=== PATIENT | male | born 1965 | race Caucasian/White ===

== ENCOUNTER → 2020-04-25 08:57 | Outpatient (CLI) | payer BC, OTHER, SELFPAY ==
[2020-04-25 10:09] LABS: Alanine Aminotransferase 50 IU/L (<50); Albumin 4.3 g/dL (3.5-5.0); Albumin Globulin Ratio 1.5 (1.0-2.8); Alkaline Phosphatase 58 U/L (38-126); Aspartate Aminotransferase 32 IU/L (17-59); Bilirubin Total 1.2 mg/dL (0.2-1.3); Bilirubin Unconjugated 1.2 mg/dL (0.0-1.1); Globulin 2.8 g/dL (1.7-4.1); HEMOLYSIS < 15 (0-50); Total Protein 7.1 g/dL (6.3-8.2)
== END ==
PROVIDERS: PCP Family Medicine; Referring Provider Dermatology; Visit Provider Dermatology
DX: B35.1 Tinea unguium (principal); Z79.899 Other long term (current) drug therapy
CPT/HCPCS: 36415; 80076

== ENCOUNTER → 2020-05-10 07:49 | Outpatient (CLI) | payer BC, OTHER, SELFPAY ==
[2020-05-10 09:46] LABS: Alanine Aminotransferase 42 IU/L (<50); Albumin 4.3 g/dL (3.5-5.0); Albumin Globulin Ratio 1.7 (1.0-2.8); Alkaline Phosphatase 54 U/L (38-126); Aspartate Aminotransferase 29 IU/L (17-59); Bilirubin Total 1.4 mg/dL (0.2-1.3); Bilirubin Unconjugated 1.4 mg/dL (0.0-1.1); Globulin 2.6 g/dL (1.7-4.1); HEMOLYSIS < 15 (0-50); Total Protein 6.9 g/dL (6.3-8.2)
== END ==
PROVIDERS: PCP Family Medicine; Referring Provider Dermatology; Visit Provider Dermatology
DX: Z79.899 Other long term (current) drug therapy (principal)
CPT/HCPCS: 36415; 80076

== ENCOUNTER → 2024-04-07 10:07 | Outpatient (CLI) | payer BC, OTHER, SELFPAY ==
--- NOTE | 2024-04-07 10:54 | EKG_ITS ---
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
[2024-04-07 11:22] LABS: Add Manual Diff / Slide Review NO; Basophils Absolute Auto 0 /uL (0-100); Basophils Percent Auto 0.5 % (0-2); Eosinophils Absolute Auto 100 /uL (0-450); Eosinophils Percent Auto 3.1 % (2-4); Hematocrit 43.6 % (41-53); Hemoglobin 15.1 g/dL (13.5-17.5); Lymphocytes Absolute Auto 1400 /uL (1100-4500); Mean Corpuscular HGB Conc 34.7 % (30-36); Mean Corpuscular Volume 86.6 fL (80-100); Monocytes Absolute Auto 400 /uL (0-900); Monocytes Percent Auto 9.6 % (3-14); Neutrophils Absolute Auto 1900 /uL (1500-7000); Neutrophils Percent Auto 50.8 % (50-75); Platelet Count 198 X10^3/uL (150-400); Red Blood Cell Count 5.03 X10^6/uL (4.5-5.9); Red Cell Distribution Width 13.6 % (11.6-14.8); White Blood Cell Count 3.8 X10^3/uL (4.5-11.0)
[2024-04-07 11:51] LABS: BUN Creatinine Ratio 35.4 (6-22); Blood Urea Nitrogen 29 mg/dL (9-20); Carbon Dioxide 23 mmol/L (22-32); Chloride 104 mmol/L (98-107); Estimated Glomerular Filt Rate > 60 mL/min (>60); Glucose 113 mg/dL (70-100); HEMOLYSIS < 15 (0-50); Sodium 136 mmol/L (137-145)
[2024-04-07 11:52] LABS: Appearance Urine UA CLEAR; Bilirubin Urine UA NEGATIVE (NEGATIVE); Color Urine UA YELLOW; Glucose Urine UA NEGATIVE (Negative); Ketones Urine UA TRACE (NEGATIVE); Leukocyte Esterase Urine UA NEGATIVE (NEGATIVE); Nitrite Urine UA NEGATIVE (Negative); Occult Blood Urine UA TRACE-INTACT (Negative); Protein Urine UA NEGATIVE (Negative); Urobilinogen Urine UA 0.2 E.U./dL (0.2)
[2024-04-07 11:54] LABS: Urine Volume 10mL (spun)
[2024-04-07 11:56] LABS: Bacteria Urine None Seen; Culture Indicated Urine Cult Not Indicated; Mucus Urine 2+ (Negative); RBC Urine None Seen (0-5/HPF); Squamous Epithelial Cell Urine 0-1 /HPF (0-5/HPF); WBC Urine None Seen (0-5/HPF)
== END ==
PROVIDERS: PCP Family Medicine; Referring Provider Orthopaedic Surgery; Visit Provider Orthopaedic Surgery
DX: Z01.818 Encounter for other preprocedural examination (principal); R73.9 Hyperglycemia, unspecified; Z01.812 Encounter for preprocedural laboratory examination; N39.0 Urinary tract infection, site not specified
CPT/HCPCS: 36415; 80048; 81001; 83036; 85025; 93005

== ENCOUNTER 2024-05-15 06:07 | Day surgery (SDC) | payer BC, OTHER, SELFPAY ==
[2024-05-02 12:53] VITALS: BMI 38.7
[2024-05-15] VITALS (19 sets, daily range): BP systolic 92–147; BP diastolic 51–86; PULSE 64–86; RESP 15–20; TEMP 36.4–37.1; O2SAT 92–98; BMI 37.9
--- NOTE | 2024-05-15 | DI.RAD.S_ITS ---
PROCEDURE: XR PELVIS 1-2V INDICATIONS: INTRA OP TOTAL RIGHT HIP TECHNIQUE: 1 view of the lower pelvis acquired. COMPARISON: None. FINDINGS: Bones: Patient is status post right hip arthroplasty, with hardware components in expected positions. The hip joint appears congruent. The visualized bony structures appear intact. Soft tissues: Overlying postoperative changes are noted. No suspicious soft tissue densities. IMPRESSION: Intraoperative image of pelvis shows right total hip arthroplasty in progress. Normal right hip alignment. Dictated by: Jose Schmitt M.D. on 05/15/2024 at 11:13 Approved by: Jose Schmitt M.D. on 05/15/2024 at 11:14
--- NOTE | 2024-05-15 06:00 | DI.RAD.S_ITS ---
PROCEDURE: XR HIP W PEL IF DONE RT 2V INDICATIONS: myriam TECHNIQUE: AP pelvis and lateral view of the hip acquired. COMPARISON: [facility], [place], XR PELVIS 1-2V, 05/15/2024, 9:13. FINDINGS: Bones: Patient is status post total right hip arthroplasty, with hardware components in expected positions. The hip joint appears congruent. The visualized bony structures appear intact. Soft tissues: Overlying postoperative changes are noted. No suspicious soft tissue densities. IMPRESSION: Expected immediate postoperative appearance, status post total right hip arthroplasty. Dictated by: Sae Edwards M.D. on 05/15/2024 at 15:10 Approved by: Sae Edwards M.D. on 05/15/2024 at 15:11
[2024-05-15] MEDS: ACETAMINOPHEN 325 MG TABLET 975 MG PO ×3 (06:54→20:41)
[2024-05-15] MEDS: CELECOXIB 200 MG CAPSULE PO (06:57)
[2024-05-15] MEDS: LACTATED RINGERS 1,000 ML 42 ML IV ×2 (06:58→09:15)
[2024-05-15 07:25] LABS: Influenza A - CEPHEID Flu A NEGATIVE (NEGATIVE); Influenza B - CEPHEID Flu B NEGATIVE (NEGATIVE); Respiratory Syncytial Virus Negative (Negative)
[2024-05-15 07:26] LABS: COVID-19 CEPHEID 4-PLEX PCR Negative (Negative)
[2024-05-15] MEDS: VANCOMYCIN 1,000 MG in SODIUM CHLORIDE 0.9% 250 ML 250 MG IV (07:40)
--- NOTE | 2024-05-15 07:43 | PM.PREOP ---
Pre-operative Note Interval Note History & Physical reviewed/Exam performed by Physician: Yes Changes to H&P: No
--- NOTE | 2024-05-15 07:44 | PM.OP.1 ---
Operative Date/Time/Diagnoses Date of procedure: 05/15/24 Time of procedure: 08:00 Pre-op diagnosis: right hip OA Post-op diagnosis: same Procedure & Clinicians Procedure: Right total hip arthroplasty posterior approach Same procedure as scheduled: Yes Indications: The patient has had progressively worsening right hip pain with radiographic changes consistent with arthritis. Non-operative management has failed and the patient has requested total hip replacement. The risks, benefits and alternatives to surgery were discussed with the patient prior to proceeding. Risks discussed included, but were not limited to, failure to relieve pain, leg length discrepancy, dislocation, stiffness, infection, nerve damage, deep venous thrombosis, pulmonary embolism, stroke, coma, heart attack, permanent paralysis and , as well as the potential need for eventual revision of the prosthetic. Surgeon: Gertrudis Acuña [employer]: [employer] Anesthesia Type: General and Spinal Operative Notes Findings: Severe right hip OA, adequate stability, hard bone Closure Type: primary Specimen(s): none sent Prosthetic devices, grafts, tissues, transplants, or devices: Acuña and Nephew R3 size 56, two 6.5 mm screw, polar stem extended offset size 3 lateralized, 36+ 0 femoral head Oxinium Estimated Blood Loss (mL): 250 Blood products transfused: none Procedure in detail: The patient was seen in the pre-operative area, where the patient identified the right hip as the operative site and this was marked with my initials. The patient received pre-operative antibiotics and was taken to the operating room and placed on the operative table in the left lateral decubitus position after satisfactory anesthesia. A realtime court reporter out was performed. The right leg was prepared from the ankle to the iliac crest with ChloroPrep in the usual fashion and draped through sterile drapes. A PA was used during the procedure and was essential for intraoperative retraction and safe implantation of the components. The hip was approached through an approximately 20 cm incision centered over the greater trochanter and curving gently posteriorly as it went proximally. This was carried sharply to the fascia margo, which was divided and retracted with a self retaining retractor. The trochanteric bursa was excised with care being taken to avoid the sciatic nerve, which was identified and protected throughout the case. The short external rotators were incised and the capsulomuscular flap was raised and tagged for later repair. The hip was dislocated, and a femoral neck osteotomy performed approximately 15 mm above the lesser trochanter. Retractors were placed around the femur. The canal was opened with a box cutting osteotome, followed by a T handled reamer and a lateralizing reamer. The chili pepper broach was then used, followed by sequential broaching until there was good stability of the broach in the femur. Retractors were placed to expose the acetabulum. The labrum and central soft tissues were removed. Reaming was performed initially going up in 2 mm increments, then 1 mm increments until good bite was obtained with an odd sized reamer. The cup 1 mm larger than the last reamer was then inserted using the appropriate anteversion guides. It was further stabilized with two screws. A trial neutral liner was placed. The broach was placed in the canal. A trial head and neck were then placed and the hip relocated and checked for leg length and stability. An intraoperative film confirmed the component position and no evidence of fracture. The patient was stable in the position of sleep, of squatting, and could be put through a range of motion with 45 degrees internal rotation without dislocation. At 90 degrees flexion, internal rotation to 70 ? was possible before dislocation. This was felt to be satisfactory and the appropriate components were opened, and the trials were removed. The acetabular liner was impacted into position. The final stem was then impacted into the prepared femoral canal. A brief Betadine soak was performed while trialing with head options. The hip was meticulously irrigated with normal saline. Finally the femoral head was impacted onto the stem. The acetabulum was cleared of all material and the hip relocated one final time. The capsulomuscular flap was then repaired to the greater trochanter though an awl hole using the tag sutures. The short external rotators were repaired with a nonabsorbable suture. The fascia margo was closed with Vicryl. The subcutaneous layer was closed with barbed sutures and syeda. A david Dressing was applied and the patient was taken to recovery having tolerated the procedure well. Complications: none Post-operative Condition: stable Disposition: Acute Care Plan for aftercare: The patient will be maintained on a standard total hip replacement protocol with weight bearing as tolerated and posterior hip precautions. The patient will receive Aspirin and sequential compression devices for DVT prophylaxis. The patient will be discharged home when safe for the home environment.
[2024-05-15] MEDS: CEFAZOLIN VIAL 3 GM in SODIUM CHLORIDE 0.9% 100 ML IV ×3 (07:46→23:47)
--- NOTE | 2024-05-15 07:53 | SUR.OPER ---
Lateral on padded OR bed. Gel axillary roll. Arms secured on padded armboard with pillow supporting top arm. Padded hip positioner braces x4 - anterior and posterior chest and pelvis. Additional gel pad used anterior pelvis. Gel pad under bottom leg from knee to foot and secured with tape over sheet.
[2024-05-15] MEDS: BUPIVACAINE 0.25% W/ EPI 30 ML VIAL 60 ML INJ (08:58)
[2024-05-15] MEDS: BUPIVACAINE LIPOSOME 266 MG/20 ML VIAL INJ (08:59)
[2024-05-15] MEDS: TRANEXAMIC ACID 1,000 MG VIAL 2000 MG INJ ×2 (09:00→10:20)
[2024-05-15] MEDS: EPINEPHrine 1 MG/ML IRR (09:02)
--- NOTE | 2024-05-15 11:34 | SUR.PHASEI ---
CLAUDIO dressing checked and the seal light blinking. CORINNA Chiu to bedside and aware who wants this RN to add another tegaderm dressing. dressings added and seal light is currently green. patient tolerated well.
[2024-05-15] MEDS: LACTATED RINGERS 1,000 ML 100 ML IV (12:50)
[2024-05-15] MEDS: OXYCODONE IR 5 MG TABLET PO ×4 (12:50→23:51)
--- NOTE | 2024-05-15 13:10 | OT.IP.EVAL ---
Current Diagnoses Unilateral primary osteoarthritis, right hip (05/15/24) Surgery Performed Operation Date: 05/15/24 07:45 Actual Procedures p Total Hip Arthroplasty(Right) - Gertrudis Acuña MD Past Medical History (Last Updated 05/02/24 @ 14:05 by Amy Muniz, RN) HLD (hyperlipidemia) Osteoarthritis Surgical History (Last Updated 05/02/24 @ 14:05 by Amy Muniz, RN) History of total left knee replacement History of total right knee replacement Occupational Therapy Inpatient Evaluation/Re-Eval M1 PT/OT-IP Prior Functional Status Start: 05/15/24 13:26 Freq: NEEDED Status: Active Protocol: Document 05/15/24 13:27 [facility] (Rec: 05/15/24 13:37 [facility] [id number]) Medical Review Prior Functional Status Communication I Mobility and Gait Pt states did not use a device but was limited in distance for walking. Activities of Daily Living and IADL's COmpletely independent with all needs but had pain. Prior Functional Level (Other details) Pt's to be there for the next two days and then has to work. Their legally blind son to be able to stay and assist him. Social History Household Members spouse Living Arrangements House Number of Floors (Floors) One Floor Home Environment High Toilet,Walk in Shower, Ramp Home Equipment Front Wheel Walker,Straight Cane,Raised Toilet Seat w/ Armrests,Hand Held Shower,Lift Recliner M2 OT-IP Current Condition Start: 05/15/24 13:26 Freq: Status: Active Protocol: Document 05/15/24 13:27 [facility] (Rec: 05/15/24 13:37 [facility] [id number]) Occupational Therapy Current Condition Current Condition Evaluation Date 05/15/24 Treatment Diagnosis S/P R ROSA posterior approach Post Operative Precautions Posterior Hip Precautions No Hip Flexion > 90 degrees,No Hip Internal Rotation,No Hip Adduction M3 OT- IP Subjective and Pain Start: 05/15/24 13:26 Freq: Status: Active Protocol: Document 05/15/24 13:27 [facility] (Rec: 05/15/24 13:37 [facility] [id number]) OT- Subjective Occupational Therapy Visit Type Type Initial Evaluation Visit Start Time 13:10 Visit Stop Time 13:30 Occupational Therapy Visit Comments Patient Comments Pt very groggy and not ready to get up yet but agreed to talk to OT. Pt states did pre PT but does not have his outpt PT appt set-up yet. Patient/Caregiver Goals TO go home. OT Pain Assessment Pain When Pain Assessed At Rest Pain Present Pain Present Denied Pain M4 OT- IP ADL's Start: 05/15/24 13:26 Freq: Status: Active Protocol: Document 05/15/24 13:27 [facility] (Rec: 05/15/24 13:37 [facility] [id number]) OT TCD-Kjkc-Eglqvhn General Evaluation Self-Feeding Ability Independent OT ADL-Grooming Comments OT Grooming Comments Pt able to wash his hands after set-up. OT ADL-Oral Care Comments Oral Care Comments Not performed. OT ADL-Dressing General Eval Lower Body Dressing Ability Maximum Assistance Comments OT Dressing Comments Educated of getting his RLE dressed first and take out last. Pt states has slip on shoes. Pt would benefit form hip kit for ADL needs. OT ADL-Toileting Comments OT Toileting Comments Suggested best to get up to use the bathroom, but have the urinal just in case. Pt states to sleep in his lift chair initially. OT ADL-Bathing Comments OT Bathing Comments Pt will benefit from a shower chair. Spoke on care for dressing during showering needs. M5 OT- IP IADL's Start: 05/15/24 13:26 Freq: Status: Active Protocol: Document 05/15/24 13:27 [facility] (Rec: 05/15/24 13:37 [facility] [id number]) OT-Instrumental Activities of Daily Living Home Safety Awareness Awareness of Need for Assistance at Home Good Awareness Home Safety Comments Pt is still a bit groggy from sx. Meal Preparation Meal Preparation Caregiver Provides Assist Solid Glass Rod Dowel Machine Operator Solid Glass Rod Dowel Machine Operator Caregiver Provides Assist M6 OT- IP Functional Cognition Start: 05/15/24 13:26 Freq: Status: Active Protocol: Document 05/15/24 13:27 [facility] (Rec: 05/15/24 13:37 [facility] [id number]) Cognitive Factors Limiting Selfcare Function Cognitive Ability Level of Alertness Alert,Drowsy Patient Orientation Name,Place,Situation Attention Span Ability Capable of Focused Attention, Capable of Sustained Attention Ability to Follow Commands Able to Follow One Step Commands Cognitive Comments Cognitive Assessment Comments Pt is still a bit groggy from sx. Pt able to recall 1/3 hip precautions and able to go over precautions with pt and go over the hip folder with him. Encouraged pt to work on leg exercises in bed. OT- Vision and Hearing OT- Hearing Assessment OT- Hearing Assessment WFL OT- Vision Assessment Visual Acuity Glasses All The Time Vision Assessment Comments Pt complaining of having something in his right eye and feeling scratchy, nursing aware. M7 OT- IP Mobility and Balance Start: 05/15/24 13:26 Freq: Status: Active Protocol: Document 05/15/24 13:27 [facility] (Rec: 05/15/24 13:37 [facility] [id number]) OT-Transfer Assessment Comments Mobility Comments Not performed as pt not ready to get up and getting his lunch. M8 OT- IP Objective Assessments Start: 05/15/24 13:26 Freq: Status: Active Protocol: Document 05/15/24 13:27 [facility] (Rec: 05/15/24 13:37 [facility] [id number]) OT Gross Range of Motion Upper Extremity Range of Motion Assessment Within Functional Limits OT Strength Upper Extremity Strength Assessment Within Functional Limits M9 OT- IP Assessment and Plan Start: 05/15/24 13:26 Freq: Status: Active Protocol: Document 05/15/24 13:27 [facility] (Rec: 05/15/24 13:37 [facility] [id number]) OT Summary Assessment and Plan Potential Rehabilitation Potential Good Analytic Complexity at Evaluation Low Summary OT Impairments Pain,Balance,Functional Mobility,Grooming,Dressing, Toileting,Bathing,Toilet Transfers,Shower Transfers, Activity Tolerance Progress Towards Goals Slow Progress due to Medical Issues Assessment Summary Pt still groggy and a but numb yet and not reeady to get up for OT eval. Able to go over OT needs and safety suggestions for ADL needs. Pending how pt mobilizes, pt to hopefully go home with 24/7 assist and outpt PT. Goals Self-Feeding Goal Independent Grooming Goal Independent Dressing Goal Minimal Assistance Toileting Goal Independent Bathing Goal Minimal Assistance Toilet Transfer Goal Independent Shower Transfer Goal Contact Guard Assistance Days to Meet Goals 10 Frequency of Treatment Other frequency 5x/week Treatment Plan OT Treatment Plan ADL Training,Functional Mobility,Patient/Family Education,Discharge Planning Discharge Recommendations OT Discharge Recommendations Home with 24/7 Assist Available,Outpatient PT Other Discharge Recommendations Not able to mobilize on OT eval, therefore goals and disposition may change. Home Equipment Needs Shower chair, LB dressing equipment Transportation Needs at Discharge Private Vehicle
[2024-05-15] MEDS: GENTAMICIN 0.3% OPHTH 5 ML 1 DROPS EYE-BOTH ×2 (15:10→19:00)
--- NOTE | 2024-05-15 15:10 | PT.IIE ---
Current Diagnoses Unilateral primary osteoarthritis, right hip (05/15/24) Surgery Performed Operation Date: 05/15/24 07:45 Actual Procedures p Total Hip Arthroplasty(Right) - Gertrudis Acuña MD Surgical History (Last Updated 05/02/24 @ 14:05 by Amy Muniz, RN) History of total left knee replacement History of total right knee replacement Medical History (Last Updated 05/02/24 @ 14:05 by Amy Muniz, GENE) HLD (hyperlipidemia) Osteoarthritis Physical Therapy Inpatient Evaluation/Re-Eval M1 PT/OT-IP Prior Functional Status Start: 05/15/24 16:39 Freq: NEEDED Status: Active Protocol: Document 05/15/24 15:10 AB (Rec: 05/15/24 16:53 AB [id number]) Medical Review Prior Functional Status Medical History Reviewed Yes Communication able to make needs known Mobility and Gait pt stated that he was indpeendent with all mobilities and ambulation without AD Activities of Daily Living and IADL's per OT note: Completely independent with all needs but had pain. Social History Household Members spouse,children Living Arrangements House Number of Floors (Floors) One Floor Number of Stairs To Enter/Railing? ramp to enter Home Environment High Toilet,Walk in Shower, Ramp Home Equipment Front Wheel Walker,Straight Cane,Raised Toilet Seat w/ Armrests,Hand Held Shower,Lift Recliner Additional Social History Comment pt's spouse will assist pt for 1-2 days; has a 30y/o legally blind son who may be able to assist pt pt plans to sleep on his lift chair initially M2 PT-IP Current Condition Start: 05/15/24 16:39 Freq: NEEDED Status: Active Protocol: Document 05/15/24 15:10 AB (Rec: 05/15/24 16:53 AB [id number]) Physical Therapy Current Condition Current Condition Evaluation Date 05/15/24 Treatment Diagnosis s/p R ROSA posterior; difficulty in walking Onset Date 05/15/24 M3 PT-IP Subjective Start: 05/15/24 16:39 Freq: NEEDED Status: Active Protocol: Document 05/15/24 15:10 AB (Rec: 05/15/24 16:53 AB [id number]) Subjective Physical Therapy Visit Type Type Initial Evaluation Visit Start Time 15:10 Visit Stop Time 15:55 Number of CASINO BANKER Visits 0 Physical Therapy Visit Comments Patient Comments agreeable to do PT Therapy Pain Assessment Pain When Pain Assessed At Rest Pain Present Pain Present Pain Reported Location Right Hip Intensity 4 Scale Used Numeric (0 - 10) Pain Management Techniques Apply Cold,Distraction, Modification of Treatment,Re- positioning,Timing of Activity with Medications M4 PT-IP Mobility and Gait Start: 05/15/24 16:39 Freq: NEEDED Status: Active Protocol: Document 05/15/24 15:10 AB (Rec: 05/15/24 16:53 AB [id number]) PT-Bed Mobility Assessment Supine to Sit Supine to Sit Maximum Assistance,1 Person Assistance Sit to Supine Sit to Supine Maximum Assistance,1 Person Assistance PT-Transfer Assessment Sit to and From Stand Sit to and from Stand Maximum Assistance,1 Person Assistance,Use of Upper Extremities Equipment Transfer Assistive Device Gait Belt,Front Wheeled Walker Orthotic/Prosthetic Devices or Brace: No Comments Mobility Comments pt in bed and spouse in room. pt agreed to do PT. stated that he can move RLE but still has slight numbness on anterior thigh. obtained PLOF and home set up. educated pt on R posterior hip precautions. pt able to recall. BP in supine: 132/83. pt completed supine to sit max A and max cues for techniques. pt able to sit on EOB CGA. c/o dizziness/lightheadedness/ nausea. BP checked: 126/69. pt rested and sat for 1-2 minutes. BP rechecked: 134/80. sit to stand max A and max cues. pt able to take 2 steps forward/backwards and sidestepping towards HOB using FWW max A and max cues. cued and assisted with R quads activation. completed sit to supine max A and max cues with LE elevation to bed. positioned pt in bed. BP checked: 126/74. call light and table placed within reach. setup caregiver training tomorrow with pt and sposue at 9am. Gait Assessment Gait Gait Assistance Required: Maximum Assistance,1 Person Assist Distance (Feet) 3 Able to Maintain Weight Bearing Status Yes During Gait Assistive Devices Assistive Device Gait Belt,Front Wheeled Walker Orthotic/Prosthetic Devices or Brace: No Gait Deviations General Gait Pattern Decreased Stride Length, Decreased Feet Clearance,Step- to Gait Factors Limiting Gait Function Factors Limiting Gait Function Decreased Activity Tolerance, Decreased Sensation,Decreased Strength,Difficulty Following Directions,Limited Range of Motion,Pain,Poor Balance,Poor Safety Awareness PT-Balance Assessment Sitting Balance and Reactions Static Sitting Balance Ability Normal Dynamic Sitting Balance Ability Good Standing Balance and Reactions Static Standing Balance Ability Fair Dynamic Standing Balance Ability Poor Device Used FWW M5 PT-IP Objective Assessments Start: 05/15/24 16:39 Freq: NEEDED Status: Active Protocol: Document 05/15/24 15:10 AB (Rec: 05/15/24 16:53 AB [id number]) Orientation Orientation/Cognition Level of Alertness Alert Orientation Name,Place,Situation Language Function Ability No Deficits Noted Safety Awareness Decreased Safety Awareness Memory Description No Deficits Noted Gross Range of Motion Lower Extremity ROM Assessment Within Functional Limits Strength Lower Extremity Strength Assessment Right Impaired Hip 3-/5 Knee 3+/5 Coordination Assessment Gross Coordination Gross Coordination WNL Sensation Assessment Sensation Sensation Description Numbness Comments Sensation Comments slight R anterior thigh numbness Muscle Tone Muscle Tone WNL Yes M6 PT-IP Treatment Start: 05/15/24 16:39 Freq: NEEDED Status: Active Protocol: Document 05/15/24 15:10 AB (Rec: 05/15/24 16:53 AB [id number]) Physical Therapy Treatment Exercises Exercises Heel Slides Education Education Provided Precautions,Weight Bearing Status,Safety M7 PT-IP Assessment and Plan Start: 05/15/24 16:39 Freq: NEEDED Status: Active Protocol: Document 05/15/24 15:10 AB (Rec: 05/15/24 16:53 AB [id number]) PT Summary Assessment and Plan Potential Rehabilitation Potential Fair Status of Condition at Evaluation Evolving Summary Impairments Pain,ROM,Strength,Balance, Coordination,Sensation,Bed Mobility,Transfers,Gait, Activity Tolerance Assessment Summary pt is a 58 y/o M s/p R ROSA posterior approach POD 0. pt has R posterior hip precautions and is WBAT. pt requiring max A with bed mobility, transfers and ambulation using fWW at this time. caregiver training set up for tomorrow with spouse at 9 am. will continue to assess progress. Goals Bed Mobility Goal Standby Assistance Transfer Goal Standby Assistance,Front Wheeled Walker Gait Goal Standby Assistance,Front Wheel Walker Gait Distance 150 Other Goals improve bed mobility, transfers, ambulation using FWW ~ 250 ft mod I Days to Meet Goals 5 Frequency of Treatment Frequency Of Treatment Twice a Day Treatment Plan Physical Therapy Treatment Plan Bed Mobility Training,Transfer Training,Gait Training, Therapeutic Exercise,Balance Retraining,Post Op Education, Discharge Planning,Hot or Cold Pack,Neuromuscular Re-ed, Coordination Retraining,Manual Therapy Precautions Posterior Hip Precautions No Hip Flexion > 90 degrees,No Hip Internal Rotation,No Hip Adduction Weight Bearing Status Weight Bearing Status Weight Bear as Tolerated Allowed Weight Bearing Amount (enter % RLE WBAT or #) (%) Recommendations To Nursing Amount of Assist Needed 2 Person Assist Discharge Recommendations PT Discharge Recommendations Home with 20/09 Assist Available,Home Health, Outpatient PT Transportation Needs at Discharge Private Vehicle - PT assist 1
--- NOTE | 2024-05-15 17:43 | PC.NURSE ---
Patient arrives from PACU at 1150 a.m. He is A&OX4, VSS, afebrile. He is weaned to RA. He is able to stand with PT, however very guarded and PT recommends x2 assist with FWW. He reports pain is 2-6/10 to R hip well controlled with PRN oxycodone and scheduled tylenol. He c/o R eye irritation. MD at bedside evaluating and orders scheduled gentamycin eye drops with some relief. He reports he was told he voided during surgery, and has not voided yet this shift. IVF LR at 100 ml/hr. Continuous pulse ox, bed alarm, call light in reach, frequent rounding, admission assessment completed. He is due to void this evening approximately by 10 pm. Endorsed to oncoming RN. Plan to do caregiver training with at 9 a.m. tomorrow and likely d/c home pending PT eval and ortho clearance.
[2024-05-15] MEDS: ATORVASTATIN 20 MG TABLET 10 MG PO (20:40)
[2024-05-15] MEDS: DOCUSATE 100 MG CAPSULE PO (20:40)
[2024-05-16] VITALS: BP 151/86; PULSE 73; RESP 18; TEMP 36.6; O2SAT 95
[2024-05-16] MEDS: LACTATED RINGERS 1,000 ML 100 ML IV (00:14)
[2024-05-16] MEDS: OXYCODONE IR 5 MG TABLET PO ×3 (04:13→09:38)
[2024-05-16 06:38] LABS: Hematocrit 34.7 % (41-53); Hemoglobin 11.9 g/dL (13.5-17.5)
[2024-05-16 08:00] VITALS: BP 147/74; PULSE 72; RESP 21; TEMP 37.4; O2SAT 95
--- NOTE | 2024-05-16 08:01 | P.DS_ITS ---
History of Present Illness History of Present Illness Date Patient Seen: 05/16/24 Time Patient Seen: 07:30 Chief complaint: Right Total Hip Arthroplasty Narrative: The patient has had progressively worsening right hip pain with radiographic changes consistent with arthritis. Non-operative management has failed and the patient has requested total hip replacement. The risks, benefits and alternatives to surgery were discussed with the patient prior to proceeding. Risks discussed included, but were not limited to, failure to relieve pain, leg length discrepancy, dislocation, stiffness, infection, nerve damage, deep venous thrombosis, pulmonary embolism, stroke, coma, heart attack, permanent paralysis and , as well as the potential need for eventual revision of the prosthetic. Discharge Providers Provider Discharge Date: 05/16/24 Primary care physician: Wellington Crisostomo MD Consults: 05/15/24 06:00 Consult to Anesthesiology Routine Comment: Consulting Provider: Anesthesiologist Reason for consultation: Regional block for post operative pain control 05/15/24 11:44 Consult to Discharge Planning Routine Comment: Consult to Occupational Therapy Evaluate & Treat Comment: Physician Instructions: Evaluate and treat Consult to Physical Therapy Evaluate & Treat Comment: Physician Instructions: post op ROSA protocol Discharge provider: Sascha Peterson PA-C Summary Hospital Course Discharge Diagnosis: right hip OA Hospital Course: Procedure: Right total hip arthroplasty posterior approach Same procedure as scheduled: Yes Surgeon: Gertrudis Acuña [employer] Layout Person: Apple Jang Anesthesia Type: General and Spinal Operative Notes Findings: Severe right hip OA, adequate stability, hard bone Closure Type: primary Specimen(s): none sent Prosthetic devices, grafts, tissues, transplants, or devices: Acuña and Nephew R3 size 56, two 6.5 mm screw, polar stem extended offset size 3 lateralized, 36+ 0 femoral head Oxinium Estimated Blood Loss (mL): 250 Status at Discharge Cognitive/behavioral status at discharge: at baseline, oriented Functional status at discharge: uses cane/walker Overall status at discharge: patient is back to baseline Time Spent with Patient Time spent: Less than 30 minutes Exam Vital Signs (past 8 hours): Oxygen Delivery Method Room Air Oxygen Flow Rate 0 Narrative Exam Narrative: Patient's pain is controlled with oral medication. Pain is localized to surgical site. Patient declines any new numbness or tingling at the surgical extremity. Patient denies any shortness of breath, dizziness, light-headedness, nausea, vomiting, fever or chills. 5/5 strength in hip flexors, quadriceps, hamstrings, DF, PF, EHL bilaterally. Sensation to light touch intact throughout BLE. Calves soft, compressible, nontender. Dressing placed intraoperatively CDI. Resp Effort & Inspection: normal respiratory effort and able to speak in complete sentences Objective Labs 05/16/24 06:00 Labs: Laboratory Results - last 24 hr 05/16/24 06:00 Hgb 11.9 L Hct 34.7 L PFSH Medical History (Updated 05/02/24 @ 14:05 by Amy Muniz RN) Osteoarthritis HLD (hyperlipidemia) Surgical History (Updated 05/02/24 @ 14:05 by Amy Muniz RN) History of total left knee replacement History of total right knee replacement Social History household members: spouse and children Smoking Status: Former smoker alcohol intake: current Discharge Assessment & Plan Assessment and Plan Assessment: Status post Right total hip arthroplasty posterior approach Plan of Treatment: Discharge to home. Posterior Hip Pre-cautions. Ambulate and weight bear as tolerated with assistive devices. Aspirin 81 mg twice a day for 6 weeks for DVT prevention. Baseline pain relief with acetaminophen 500mg every 4 hours as needed and ibuprofen 400 mg every 4 hours as needed. Patient has been prescribed oxycodone 5 mg every 4 hours as needed for breakthrough pain. Initiate physical therapy in the next 5-10 days. Keep dressing clean and dry. Keep dressing on until first office visit. If dressing becomes dirty or disrupted, replace with appropriate sized dressing. Follow up in clinic in 2 weeks for wound check. Contact clinic if there are any questions or concerns. Discharge Plan Discharge Plan Patient Disposition: Home Provider Discharge Comment: DC pending PT approval Discharge orders & Medications Discharge Orders: Discharge (Order); Ordered 05/16/24 Ordered By: Sascha Peterson Prescriptions: New aspirin 81 mg capsule 81 mg PO BID Qty: 90 0RF Continued meloxicam 15 mg Tablet 15 mg PO DAILY acetaminophen 500 mg Tablet 1,000 mg PO TID simvastatin 20 mg Tablet 20 mg PO BEDTIME Follow up/Referrals: Gertrudis Acuña MD [Physician] - 05/25/24 1:30 pm (Follow up w/ Apple Jang PA-C, at [facility] office in [place].) Wellington Crisostomo MD [Primary Care Provider] - Diet/Activity/Treatments Diet: Diet as Tolerated Activity: Weightbearing as tolerated. Posterior hip precautions. Cold/Heat Therapy: Ice to hip as needed for pain. Skin/Wound/Dressing Care Report to your healthcare provider any signs of infection, such as:: chills, fever, night sweats, unusual drainage and unusual redness Dressing: May shower. Leave dressing in place until follow up in office. In 5- 7 days, batteries will , at which point you can cut off the battery pack and dispose of it, but leave the dressing on. No bathing or otherwise soaking incision. Call the office if the dressing becomes saturated inside. Visit Report/Discharge Packet Instructions: DI for Hip Replacement Stand Alone Forms: Patient Portal/API, Surgery Discharge Discharge Data Primary Care Provider: Wellington Crisostomo Attending Provider: Gertrudis Acuña
[2024-05-16] MEDS: polyethylene glycoL 3350 17 GM POWD.PACK PO (08:16)
[2024-05-16] MEDS: DOCUSATE 100 MG CAPSULE PO (08:16)
[2024-05-16] MEDS: ACETAMINOPHEN 325 MG TABLET 975 MG PO (08:16)
[2024-05-16] MEDS: ASPIRIN EC 81 MG TABLET PO (08:19)
[2024-05-16] MEDS: MELOXICAM 7.5 MG TABLET 15 MG PO (08:19)
--- NOTE | 2024-05-16 08:40 | PT.IPTN ---
Current Diagnoses Unilateral primary osteoarthritis, right hip (05/15/24) Surgery Performed Operation Date: 05/15/24 07:45 Actual Procedures p Total Hip Arthroplasty(Right) - Gertrudis Acuña MD Physical Therapy Treatment Note M2 PT-IP Current Condition Start: 05/15/24 16:39 Freq: NEEDED Status: Discharge Protocol: Document 05/15/24 15:10 AB (Rec: 05/15/24 16:53 AB [id number]) Physical Therapy Current Condition Current Condition Evaluation Date 05/15/24 Treatment Diagnosis s/p R ROSA posterior; difficulty in walking Onset Date 05/15/24 M3 PT-IP Subjective Start: 05/15/24 16:39 Freq: NEEDED Status: Discharge Protocol: Document 05/16/24 08:40 AB (Rec: 05/16/24 13:17 AB [id number]) Subjective Physical Therapy Visit Type Type Treatment Note Visit Start Time 08:40 Visit Stop Time 09:21 Number of TRANSPORTER RADIOLOGY Visits 0 Physical Therapy Visit Comments Patient Comments agreeable to do PT Therapy Pain Assessment Pain When Pain Assessed At Rest Pain Present Pain Present Pain Reported Location Right Hip Intensity 4 Scale Used Numeric (0 - 10) Pain Behaviors Facial Grimacing,Guarding, Holding Area Pain Management Techniques Apply Cold,Distraction, Modification of Treatment,Re- positioning,Timing of Activity with Medications M4 PT-IP Mobility and Gait Start: 05/15/24 16:39 Freq: NEEDED Status: Discharge Protocol: Document 05/16/24 08:40 AB (Rec: 05/16/24 13:17 AB [id number]) PT-Bed Mobility Assessment Supine to Sit Supine to Sit Maximum Assistance PT-Transfer Assessment Sit to and From Stand Sit to and from Stand Contact Guard Assistance, Minimal Assistance,1 Person Assistance,Use of Upper Extremities Equipment Transfer Assistive Device Gait Belt,Front Wheeled Walker Orthotic/Prosthetic Devices or Brace: No Transfers Transfer Destination Chair Transfer Technique ambulated Transfer Ability Level of Assist Contact Guard Assistance,1 Person Assistance,Use of Upper Extremities Comments Mobility Comments pt in bed. spouse in room. reviewed hip precautions and pt able to recall 3/3. caregiver training conducted. educated spouse on how to assist pt. pt completed supine to sit max A and spouse was able to assist pt. educated spouse on how to use safety belt. spouse was able to put safety belt on pt. assisted pt with sit to stand min A and cues. instructed pt to sit back on EOB. educated pt on sit<>stand techniques. pt completed sit to stand again and able to complete CGA . pt ambulated to chair using FWW ~ 15 ft CGA. pt rested. (+) SOB. O2 sat: 97-99%. sit to stand from EOB CGA and spouse able to assist. pt ambulated in room ~ 40 ft using FWW CGA. pt presents with antalgic very slow paced gait. pt sat back on chair. positioned pt on the chair. call light and table placed within reach. pt and spouse without further concerns. Gait Assessment Gait Gait Assistance Required: Contact Guard Assist,1 Person Assist Distance (Feet) 40 Able to Maintain Weight Bearing Status Yes During Gait Assistive Devices Assistive Device Gait Belt,Front Wheeled Walker Orthotic/Prosthetic Devices or Brace: No Gait Deviations General Gait Pattern Antalgic,Decreased Stride Length,Decreased Feet Clearance,Step-to Gait Factors Limiting Gait Function Factors Limiting Gait Function Decreased Activity Tolerance, Decreased Strength,Limited Range of Motion,Pain,Poor Balance,Poor Safety Awareness, Respiratory Distress M5 PT-IP Objective Assessments Start: 05/15/24 16:39 Freq: NEEDED Status: Discharge Protocol: Document 05/15/24 15:10 AB (Rec: 05/15/24 16:53 AB [id number]) Orientation Orientation/Cognition Level of Alertness Alert Orientation Name,Place,Situation Language Function Ability No Deficits Noted Safety Awareness Decreased Safety Awareness Memory Description No Deficits Noted Gross Range of Motion Lower Extremity ROM Assessment Within Functional Limits Strength Lower Extremity Strength Assessment Right Impaired Hip 3-/5 Knee 3+/5 Coordination Assessment Gross Coordination Gross Coordination WNL Sensation Assessment Sensation Sensation Description Numbness Comments Sensation Comments slight R anterior thigh numbness Muscle Tone Muscle Tone WNL Yes M6 PT-IP Treatment Start: 05/15/24 16:39 Freq: NEEDED Status: Discharge Protocol: Document 05/16/24 08:40 AB (Rec: 05/16/24 13:17 AB [id number]) Physical Therapy Treatment Education Education Provided Precautions,Safety M7 PT-IP Assessment and Plan Start: 05/15/24 16:39 Freq: NEEDED Status: Discharge Protocol: Document 05/16/24 08:40 AB (Rec: 05/16/24 13:17 AB [id number]) PT Summary Assessment and Plan Potential Rehabilitation Potential Good Summary Impairments Pain,ROM,Strength,Balance, Coordination,Sensation,Tone, Cognition,Bed Mobility, Transfers,Gait,Activity Tolerance Progress Towards Goals Progressing Toward Goals Assessment Summary pt progressing well with mobility requiring CGA for transfers and ambulation using FWW. pt needed max A for bed mobility but spouse was able to assist and plans to sleep on his lift chair initially upon d/c. caregiver training completed and spouse was able to assist pt safely. pt plans to go home and has outpt PT set up. Goals Bed Mobility Goal Standby Assistance Transfer Goal Standby Assistance,Front Wheeled Walker Gait Goal Standby Assistance,Front Wheel Walker Gait Distance 150 Other Goals improve bed mobility, transfers, ambulation using FWW ~ 250 ft mod I Days to Meet Goals 5 Frequency of Treatment Frequency Of Treatment Twice a Day Treatment Plan Physical Therapy Treatment Plan Bed Mobility Training,Transfer Training,Gait Training, Therapeutic Exercise,Balance Retraining,Post Op Education, Discharge Planning,Hot or Cold Pack,Neuromuscular Re-ed, Coordination Retraining,Manual Therapy Precautions Posterior Hip Precautions No Hip Flexion > 90 degrees,No Hip Internal Rotation,No Hip Adduction Weight Bearing Status Weight Bearing Status Weight Bear as Tolerated Allowed Weight Bearing Amount (enter % RLE WBAT or #) (%) Recommendations To Nursing Amount of Assist Needed 1 Person Assist Discharge Recommendations PT Discharge Recommendations Home with Assistance, Outpatient PT Transportation Needs at Discharge Private Vehicle - PT assist 1
--- NOTE | 2024-05-16 10:30 | OT.IP.TRT ---
Current Diagnoses Unilateral primary osteoarthritis, right hip (05/15/24) Surgery Performed Operation Date: 05/15/24 07:45 Actual Procedures p Total Hip Arthroplasty(Right) - Gertrudis Acuña MD Occupational Therapy Treatment Note M2 OT-IP Current Condition Start: 05/15/24 13:26 Freq: Status: Active Protocol: Document 05/15/24 13:27 [facility] (Rec: 05/15/24 13:37 [facility] [id number]) Occupational Therapy Current Condition Current Condition Evaluation Date 05/15/24 Treatment Diagnosis S/P R ROSA posterior approach Post Operative Precautions Posterior Hip Precautions No Hip Flexion > 90 degrees,No Hip Internal Rotation,No Hip Adduction M3 OT- IP Subjective and Pain Start: 05/15/24 13:26 Freq: Status: Active Protocol: Document 05/16/24 10:30 [facility] (Rec: 05/16/24 11:18 [facility] Desktop) OT- Subjective Occupational Therapy Visit Type Type Treatment Note Visit Start Time 10:30 Visit Stop Time 10:54 Occupational Therapy Visit Comments Patient Comments Pt wanting to use the bathroom and get dressed. Pt's present for caregiver training . Patient/Caregiver Goals TO go home. OT Pain Assessment Pain When Pain Assessed During Mobility Pain Present Pain Present Pain Reported Location Right Hip Intensity 4 Scale Used Numeric (0 - 10) M4 OT- IP ADL's Start: 05/15/24 13:26 Freq: Status: Active Protocol: Document 05/16/24 10:30 [facility] (Rec: 05/16/24 11:18 [facility] Desktop) OT FLP-Wlpi-Iolxdyo General Evaluation Self-Feeding Ability Independent OT ADL-Grooming General Evaluation Grooming Ability Independent OT ADL-Oral Care Comments Oral Care Comments Pt states did earlier. OT ADL-Dressing General Eval Lower Body Dressing Ability Moderate Assistance Areas Needing Assistance Shoes Comments OT Dressing Comments Educated to dress the RLE first and take out last. OT ADL-Toileting General Evaluation Toileting Ability Standby Assistance Comments OT Toileting Comments Educated to have the FWW over the toilet while urination. Pt unable to reach appropriately to wipe after a bowel movement and will benefit from use of wipes, toilet paper aid or assist. Educated best to stand to wipe to best follow his hip precautions. OT ADL-Bathing Comments OT Bathing Comments Pt able to sponge his body off and assisted with his back. Pt states to shower at home. Spoke of care for dressing while showering. M5 OT- IP IADL's Start: 05/15/24 13:26 Freq: Status: Active Protocol: Document 05/15/24 13:27 [facility] (Rec: 05/15/24 13:37 [facility] [id number]) OT-Instrumental Activities of Daily Living Home Safety Awareness Awareness of Need for Assistance at Home Good Awareness Home Safety Comments Pt is still a bit groggy from sx. Meal Preparation Meal Preparation Caregiver Provides Assist Farm Rancher Farm Rancher Caregiver Provides Assist M6 OT- IP Functional Cognition Start: 05/15/24 13:26 Freq: Status: Active Protocol: Document 05/16/24 10:30 [facility] (Rec: 05/16/24 11:18 [facility] Desktop) Cognitive Factors Limiting Selfcare Function Cognitive Ability Level of Alertness Alert Patient Orientation Name,Age,Birthday,Month,Date, Year,Day of Week,Place, Situation Attention Span Ability Capable of Focused Attention, Capable of Sustained Attention Ability to Follow Commands Able to Follow One Step Commands Cognitive Comments Cognitive Assessment Comments Pt able to recall and follow his hip precautions. M7 OT- IP Mobility and Balance Start: 05/15/24 13:26 Freq: Status: Active Protocol: Document 05/16/24 10:30 [facility] (Rec: 05/16/24 11:18 [facility] Desktop) OT-Transfer Assessment Sit to and From Stand Sit to and from Stand Contact Guard Assistance Transfers Transfer Ability Standby Assistance,Contact Guard Assistance Comments Mobility Comments Educated his how to tony/ doff the gait belt and how to assist pt form transfers. Pt's able to show good safety and understanding of how to assist pt. OT- Balance Assessment Sitting Balance and Reactions Static Sitting Balance Ability Normal Dynamic Sitting Balance Ability Good Standing Balance and Reactions Static Standing Balance Ability Good Dynamic Standing Balance Ability Fair M8 OT- IP Objective Assessments Start: 05/15/24 13:26 Freq: Status: Active Protocol: Document 05/15/24 13:27 [facility] (Rec: 05/15/24 13:37 [facility] [id number]) OT Gross Range of Motion Upper Extremity Range of Motion Assessment Within Functional Limits OT Strength Upper Extremity Strength Assessment Within Functional Limits M9 OT- IP Assessment and Plan Start: 05/15/24 13:26 Freq: Status: Active Protocol: Document 05/16/24 10:30 [facility] (Rec: 05/16/24 11:18 [facility] Desktop) OT Summary Assessment and Plan Potential Rehabilitation Potential Good Analytic Complexity at Evaluation Low Summary OT Impairments Pain,Functional Mobility, Dressing,Toileting,Bathing, Toilet Transfers,Shower Transfers Progress Towards Goals Progressing Toward Goals Assessment Summary Pt to go home with his and son to assist. Pt doing much better today and able to complete caregiver training with his for ADL and mobility needs. Pt to have outpt PT. Goals Self-Feeding Goal Independent Grooming Goal Independent Dressing Goal Minimal Assistance Toileting Goal Independent Bathing Goal Minimal Assistance Toilet Transfer Goal Independent Shower Transfer Goal Independent Days to Meet Goals 8 Frequency of Treatment Other frequency 5x/week Treatment Plan OT Treatment Plan ADL Training,Functional Mobility,Patient/Family Education,Discharge Planning Discharge Recommendations OT Discharge Recommendations Home with Assistance, Outpatient PT Home Equipment Needs Shower chair, LB dressing equipment , toilet paper aid Transportation Needs at Discharge Private Vehicle
--- NOTE | 2024-05-16 12:27 | PC.NURSE ---
Discharged patient: Patient teaching done at beside with present. Patient states understanding of d/c instructions, aware of f/u appt. w/ surgery. IV removed, pt sandi. well. Patient is leaving in stable condition, able to ambulate to to be escorted to private vehicle. VSS. A&Ox4. All belongings collected by pt and . Escorted downstairs by AHMET Mayo.
== END 2024-05-16 12:31 | disposition home or self-care (01) ==
LOC: OR 06:07 → AC 06:09
PROVIDERS: PCP Family Medicine; Referring Provider Orthopaedic Surgery; Visit Provider Orthopaedic Surgery
PROC: 0SR90JZ Replacement of Right Hip Joint with Synthetic Substitute, Open Approach (ICD-10-PCS; CPT 27130; principal; 2024-05-15 07:45)
DX: M16.11 Unilateral primary osteoarthritis, right hip (principal)
CPT/HCPCS: 27130; 0241U; 36415; 72170; 73502; 85014; 85018; 97162; 97165; 97530; 97535; C1776; A9270; J0171; J0666; J0690; J1100; J2250; J2405; J2704; J3010